=== PATIENT | male | born 1950 | race Caucasian/White ===

== ENCOUNTER → 2024-07-28 | Outpatient (CLI) | payer MEDICARE, OTHER, SELFPAY ==
--- NOTE | 2024-07-28 12:38 | MRI_ITS ---
EXAM: EXAMINATION: MRI of the brain without contrast. CLINICAL HISTORY: Memory loss. COMPARISON: None available. TECHNIQUE: Multiplanar multisequence noncontrast MR imaging of the whole-brain is performed. FINDINGS: Major intracranial flow voids are preserved. No abnormal flow void is visualized. There is no evidence of cerebral hemorrhage or cerebral edema. There is no evidence of intra-axial or extra-axial mass. There is no evidence of midline shift. Mild concordant generalized and symmetric enlargement of the ventricular system and ambient cisterns is noted. Extensive scattered areas of patchy to globular abnormal bright T2 signal are seen bilaterally throughout the floyd radiata and centrum semiovale regions. Considerable periventricular involvement is noted. No focus of diffusion restriction is seen, 12 however, to suggest recent vascular insults. Pituitary gland and optic chiasm are unremarkable for age is visualized. The clivus is normal. There is no evidence of cerebellar tonsillar ectopia. Posterior fossa structures are unremarkable for age. Sinuses are unremarkable. There is no evidence of calvarial lesion. FINDINGS: As above. MRI/Brain without Contrast IMPRESSION: Mild global atrophy but with extensive bilateral cerebral hemispheric white mat ter changes which are nonspecific but which likely represent foci of chronic ischemic demyelinative change. There is no evidence of intracranial mass. There is no evidence of recent infarct. Reading Location: [facility]
== END | disposition home or self-care (01) ==
PROVIDERS: Referring Provider Psychiatry & Neurology Neurology; Visit Provider Psychiatry & Neurology Neurology
DX: R41.3 Other amnesia (principal)
CPT/HCPCS: 70551

== ENCOUNTER → 2024-11-30 | Outpatient (CLI) | payer MEDICARE, OTHER, SELFPAY | END | disposition home or self-care (01) | LOC: MTLAB 10:20 | PROVIDERS: PCP Internal Medicine; Referring Provider Psychiatry & Neurology Neurology; Visit Provider Psychiatry & Neurology Neurology | DX: G30.9 Alzheimer's disease, unspecified (principal); F02.80 Dementia in other diseases classified elsewhere, unspecified severity, without behavioral disturbance, psychotic disturbance, mood disturbance, and anxiety | CPT/HCPCS: 36415 ==